=== PATIENT | female | born 1980 | race African-American/Black ===

== ENCOUNTER 2018-11-20 21:34 | Observation (INO) ==
[2018-11-20] MEDS ORDERED: DUONEB (A & A) INH ONE (22:20)
[2018-11-20] MEDS ORDERED: SOLU-MEDROL IV ONE (22:23)
[2018-11-20] MEDS ORDERED: ZOFRAN IV PRN (23:54)
[2018-11-20] MEDS ORDERED: NS 1,000 ML IV ONE (23:54)
[2018-11-20] MEDS ORDERED: TYLENOL PO PRN (23:54)
--- NOTE | 2018-11-20 23:54 | PROVIDER DOCUMENTATION ---
This chart was entered by Irma Robles Scribe, acting as scribe for Curtis Solo CRNP. HPI-Rash/Wound/ReCheck - General Chief Complaint: Shortness of Breath Stated Complaint: RETURN - BREATHING Time Seen by Provider: 11/20/18 22:20 Source: patient Allergies/Adverse Reactions: Allergies Allergy/AdvReac Type Severity Reaction Status Date / Time Penicillins Allergy RASH Verified 11/20/18 11:27 Home Medications: Home Medication List Medication Instructions Recorded Confirmed Last Taken Type Albuterol 2.5MG/Ipratrop 0.5MG 3 ml INH Q4-6H PRN PRN #60 neb 09/27/18 10/10/18 Unknown Rx [Duoneb] - History of Present Illness-Dermatology Nature of Presenting Problem: pt is a 38 yof c/o sob, tachypnea, dry cough and wheezing. pt was d/c from ED earlier, believed she didn't need to be admitted, but she is back due to sob. pt denies cp and fever. pt has hx of asthma, copd and dry cough. pt in respiratory distress at time of assessment. Similar Symptoms Previously?: Yes (chronic asthma) Recently seen or treated by another doctor?: Yes (today in ED) Review of Systems - Adult - REVIEW OF SYSTEMS - ADULT Constitutional: reports: no symptoms reported Eyes: reports: no symptoms reported Ears, Nose, Mouth & Throat: reports: no symptoms reported Cardiovascular: reports: no symptoms reported. denies: chest pain, edema, irregular heart rate, palpitations Respiratory: reports: see HPI, cough, shortness of breath, wheezing, other (tachypnea). denies: excessive sputum production, hemoptysis, pleurisy Gastrointestinal: reports: no symptoms reported. denies: diarrhea, nausea, vomiting Genitourinary: reports: no symptoms reported Musculoskeletal: reports: no symptoms reported Integumentary: reports: no symptoms reported Neurological: reports: no symptoms reported Psychiatric: reports: no symptoms reported Endocrine: reports: no symptoms reported Hematologic/Lymphatic: reports: no symptoms reported Allergic/Immunologic: reports: no symptoms reported All Other Systems: Reviewed and Negative Past History - Adult - PAST MEDICAL HISTORY-ADULT Review of Records: reports: Old Records Reviewed, Nursing Assessment Review, Medications Reviewed, Social history reviewed & non-contributory. Major Childhood Illnesses: reports: denies history Cardiovascular: reports: denies history Respiratory: reports: asthma, COPD Gastrointestinal: reports: GERD Obstetrical/Gynecological: reports: denies history Genitourinary: reports: denies history Musculoskeletal: reports: denies history Neurological: reports: denies history Endocrine/Immune: reports: denies history Other Conditions: reports: denies history - PRIOR SURGERIES/PROCEDURES Surgical/Procedure History: reports: none - IMMUNIZATION STATUS Childhood Immunizations: See Nurse Assessment Flu Vaccine: See Nurse Assessment - FAMILY HISTORY Family History: reviewed, not pertinent - SOCIAL HISTORY Smoking: cigarettes, greater than 1 pack/day Substance Use: none/never Physical Exam-General - PHYSICAL EXAM-ADULT Initial Vital Signs Reviewed: Yes - CONSTITUTIONAL General Appearance: alert, moderate distress. negative: lethargic, slow to respond, obtunded - EYES Eyes: PERRL/EOMI, pink conjunctivae - HEAD, EARS, NOSE, MOUTH & THROAT HENMT: normocephalic/atraumatic, moist mucous membranes, normal ENT inspection - NECK Neck: non-tender, full range of motion, supple, normal inspection - RESPIRATORY Respiratory: chest non-tender, no pleuratic chest pain, respiratory distress, accessory muscle use, wheezing (severe exp bilat), prolonged expiration, other (tachypnea). negative: lungs clear, crackles, rales, rhonchi, stridor - CARDIOVASCULAR Cardiovascular: normal peripheral pulses, regular rate, rhythm - GASTROINTESTINAL (ABDOMEN) Abdominal Exam: normal bowel sounds, non tender, soft - LYMPHATIC Lymphatic: no adenopathy - MUSCULOSKELETAL Back Exam: normal inspection, no CVA tenderness, no vertebral tenderness Extremity: normal range of motion, non-tender, normal inspection Peripheral Pulses: radial (R): 2+, radial (L): 2+ - SKIN Integumentary: normal color, normal turgor, warm/dry - NEUROLOGIC Neurologic: grossly normal, no motor/sensory deficits - PSYCHIATRIC Psych/Mental Status: normal mood/affect, normal thought content, normal thought process, oriented x 3 Progress - PLAN OF CARE/RESULTS Progress/Plan/Lab Results: Vital Signs - 8 hr 11/20/18 21:56 11/20/18 22:30 Temperature 98.3 F Pulse Rate 85 73 Respiratory Rate 18 24 Blood Pressure 161/94 O2 Sat by Pulse Oximetry 98 100 Orders Category Date Time Status Albuterol 2.5MG/Ipratrop 0.5MG [Duoneb (A & A)] Med 11/20/18 22:20 Discontinued 3 ml INH NOW ONE Methylprednisolone Sod Succ [Solu-Medrol] Med 11/20/18 22:23 Discontinued 125 mg IV NOW ONE Aerosol Treatments Routine Oth 11/20/18 22:20 Completed Aerosol Treatments Stat Oth 11/20/18 22:20 Completed - REASSESSMENT Reassessment #1 Status: improving Reassessment Comment: pt feeling a little better - XRAY 1 XRAY Study: Chest Impression: Normal XRAY Interpretation: NAD - CONSULTS/PCP/HOSPITALIST Notification #1 *Consult/PCP/Hospitalist*: Dr Langley Time Discussed: 23:47 Reason/Comments: resp distress admit to [facility] Consult Disposition: Admit Departure - Departure Date of Disposition Decision: 11/20/18 Time of Disposition Decision: 23:52 DIAGNOSIS: Respiratory distress, Asthma, URI (upper respiratory infection), SOB (shortness of breath) Disposition: ADMITTED INPATIENT 09 Certified Medical Emergency: Emergent Condition: Stable Referrals and Follow-Ups: None,PCP [Primary Care Provider] - - Critical Care Note This patient required my direct & personal management of CC.: Yes Total Time (mins): 30 Critical Care Statement: This patient required my direct personal management to treat or rule out processes, the absence of which, could potentiallly result in sudden, clinically significant life or limb threatening deterioration. Comments: respiratory distress, duonebs and steroids given Attestation - Physician/ NEW Attestation Patient care was provided by Advanced Practice Provider:: Yes Advanced Practice Provider:: Curtis Solo Advanced Practice Provider documentation review:: The Mid-level provider documentation, treatment plan and medical decision making was reviewed by the physician who agrees with all treatment and medical decision making by the [facility]. The physician spent face to face time with patient:: No Advanced Practice Provider documentation review:: Supervising physician onsite and consulted in the evaluation and care of this patient. The physician did not have a face to face encounter with the patient. This chart was documented by the indicated scribe, (Irma Robles Scribe) and accurately reflects the services I performed and decisions made by me, Curtis Glover CRNP, as attested by the provider's signature.
[2018-11-21 00:37] LABS: BILIRUBIN URINE NEGATIVE (NEGATIVE); BLOOD URINE NEGATIVE (NEGATIVE); CLARITY CLEAR (CLEAR); COLOR YELLOW; GLUCOSE URINE NEGATIVE (NEGATIVE); KETONE URINE NEGATIVE (NEGATIVE); LEUKOCYTES URINE NEGATIVE (NEGATIVE); NITRITE URINE NEGATIVE (NEGATIVE); PROTEIN URINE NEGATIVE (NEGATIVE); UROBILINOGEN URINE NORMAL
[2018-11-21 00:43] LABS: UR AMPHETAMINES QUAL NONE DETECTED (NONE DETECT); UR BARBITUATES QUAL NONE DETECTED (NONE DETECT); UR BENZODIAZEPIN QUAL NONE DETECTED (NONE DETECT); UR CANNABINOIDS QUAL PRESUMPTIVE POSITIVE (NONE DETECT); UR COCAINE QUAL NONE DETECTED (NONE DETECT); UR METHADONE QUAL NONE DETECTED (NONE DETECT); UR METHAMPHETAMINE QUAL NONE DETECTED (NONE DETECT); UR OPIATES QUAL NONE DETECTED (NONE DETECT); UR OXYCODONE QUAL NONE DETECTED (NONE DETECT); UR PCP QUAL NONE DETECTED (NONE DETECT); UR PROPOXYPHENE QUAL NONE DETECTED (NONE DETECT); UR TCA QUAL NONE DETECTED (NONE DETECT)
[2018-11-21] MEDS ORDERED: ROBITUSSIN-DM PO PRN (00:57)
[2018-11-21] MEDS ORDERED: TESSALON PO PRN (00:57)
[2018-11-21 00:58] LABS: URINE BACTERIA 1+ /HFP; URINE CAST NONE SEEN /LPF; URINE CRYSTAL NONE SEEN /HPF; URINE EPITHELIAL CELLS <10 /HPF (<10); URINE WBC <10 /HPF (<10); URINE YEAST NONE SEEN /HPF
[2018-11-21 00:59] LABS: URINE SOURCE CLEAN CATCH
[2018-11-21] MEDS: ROCEPHIN 1 GM in NS 50 ML IV SCH (01:56)
[2018-11-21] MEDS: ZITHROMAX 500 MG/NS 500 MG/250 ML IVPB IV SCH (02:05)
[2018-11-21] MEDS: DUONEB (A & A) INH SCH ×6 (03:30→22:45)
[2018-11-21] MEDS: SOLU-MEDROL IV SCH ×3 (06:02→21:39)
--- NOTE | 2018-11-21 18:30 | PROGRESS NOTE ---
DATE: 11/21/2018 SUBJECTIVE: The patient notes that she is still wheezing, still short of breath. Although, she does feel as though she has improved since she got several breathing treatments in the ER yesterday and then again last night. PHYSICAL EXAMINATION: Vital Signs: Reviewed. She is awake, alert. She is in mild respiratory distress. HEENT: Normocephalic. Neck: Supple. Cardiovascular: Regular rate. Chest: Decreased breath sounds. Positive wheezing diffusely throughout. Abdomen: Soft, nondistended. Extremities: Moves all extremities. ASSESSMENT: 1. Asthma exacerbation. 2. Acute hypoxic respiratory failure. 3. Elevated carboxyhemoglobin. 4. Chronic tobacco abuse. 5. Chronic marijuana abuse. PLAN: We will continue patient in the hospital. cc: Yohan Langley MD
[2018-11-22] MEDS: ZITHROMAX 500 MG/NS 500 MG/250 ML IVPB IV SCH (00:32)
[2018-11-22] MEDS: ROCEPHIN 1 GM in NS 50 ML IV SCH (01:29)
[2018-11-22] MEDS: DUONEB (A & A) INH SCH ×3 (03:33→11:52)
[2018-11-22] MEDS: SOLU-MEDROL IV SCH (06:07)
[2018-11-22 12:18] VITALS: BP 157/87
[2018-11-22] MEDS ORDERED: SOLU-MEDROL IV SCH (14:00)
--- NOTE | 2018-11-22 16:15 | DISCHARGE SUMMARY ---
ADMISSION DATE: 11/21/2018 DISCHARGE DATE: 11/22/2018 ADMISSION DIAGNOSES: 1. Asthma exacerbation. 2. An acute hypoxic respiratory failure. 3. Elevated carboxyhemoglobin. 4. Chronic tobacco abuse. 5. Chronic marijuana abuse. DISCHARGE DIAGNOSES: 1. Acute asthma exacerbation resolved. 2. Acute hypoxic respiratory failure resolved. 3. Chronic tobacco abuse. 4. Chronic marijuana abuse. SUMMARY OF FINDINGS: This is a 38-year-old female who presented to the emergency room with complaints of cough, congestion, shortness of breath and increased work of breathing. Denies any known history of asthma. Has been on breathing treatments for 8 months for very similar issues and has noted a mild productive cough. She initially came to the emergency room on the 16th and left AMA but her symptoms worsened so she came back on the 16th and was admitted. We placed her on duo nebs, Rocephin 1 gram IV q.24, Solu-Medrol weaned as she improved and it is now felt that she can safely be discharged home. DISCHARGE MEDICATIONS: DuoNeb q.4-6 hours p.r.n., azithromycin 250 mg p.o. at bedtime #4 with no refills, cefdinir 300 mg p.o. b.i.d. #10 with no refills and a Medrol Dosepak to take as directed. FOLLOWUP: She needs to obtain a primary care physician will give her the physician referral line to obtain a primary care physician. TIME SPENT: 35 minutes. Dictated by SYD Mcnally for Yohan Langley MD cc: SYD Mcnally MD
[2018-11-22] MEDS ORDERED: ZITHROMAX PO SCH (21:00)
[2018-11-22] MEDS ORDERED: OMNICEF PO SCH (21:00)
--- NOTE | 2018-11-23 08:57 | HISTORY AND PHYSICAL ---
The patient actually was previously admitted on 11/20, but left AMA. This medical record number is [id number]. She re-presented approximately 10 hours later with the same diagnosis of asthma exacerbation, acute hypoxic respiratory failure, elevated carboxyhemoglobin, and chronic tobacco abuse as well as marijuana abuse. We are going to admit her. Restart the same orders that we had previously started, and we will follow. Please see that full dictation. cc: Yohna Lagnley MD
--- NOTE | 2018-11-23 09:07 | PROGRESS NOTE ---
DATE: 11/22/2018 The patient seen and examined by myself. Full note dictated and discussed with nurse practitioner. She will be discharged home. I certainly would have preferred her to stay in the hospital a day or 2. Patient is adamant that she is feeling better home, and she wants to go home. Breathing is markedly improved. She has minimal wheezing. She does have a nebulizer at home. We are going to continue antibiotics, steroids, and breathing treatments. Discussed to return to the ER if not better Please see full note. cc: Yohan Langley MD MTDD
== END 2018-11-22 12:08 | disposition home or self-care (01) ==
LOC: P.ED 21:34 → P.MEDSURG 21:34
PROVIDERS: ATTEND Family Medicine